=== PATIENT | female | born 1970 | race Caucasian/White ===

== ENCOUNTER 2016-09-24 09:51 | Emergency (ER) | payer OTHER ==
[~2016-09-24] VITALS: Ht 162.6 cm; Wt 77.1 kg
[~2016-09-24 09:51] MED LIST: DULOXETINE60 MG PO; FIORICET 325 MG1 TAB PO; FLEXERIL10 MG PO; GABAPENTIN300 MG PO; HYDROCODONE/ACE1 TA1 PO; MULTIVITAMIN1 TAB PO; MYRBETRIQ25 MG PO; PREDNISONE10 MG PO; TRANSDERM0.33 MG/24 TOP; VESICARE 5MG5 MG PO; VITAB121000 PO; VITAMIN B-650 MG PO; VITAMIN D31000 I1 PO; ZOLPIDEM TART10 MG PO; ZOLPIDEM TART12.5 MG PO
[2016-09-24 10:05] VITALS: BP 109/74
--- NOTE | 2016-09-24 10:55 | RADIOLOGY REPORT ---
EXAMINATION: XR SHOULDER, RIGHT CLINICAL INFORMATION: Pain after fall COMPARISON: None TECHNIQUE: AP external rotation, Grashey, scapular Y, and axillary views of the right shoulder. FINDINGS: Bones have normal alignment. The acromioclavicular and glenohumeral joints are intact. No evidence of arthritic deformity, fracture, subluxation or focal soft tissue swelling. The visualized right upper lung is normal. IMPRESSION: Normal right shoulder.
--- NOTE | 2016-09-24 10:57 | RADIOLOGY REPORT ---
EXAMINATION: XR WRIST, RIGHT CLINICAL INFORMATION: Pain and swelling after fall last night COMPARISON: 08/07/2015 TECHNIQUE: Right wrist, 4 views FINDINGS: Distal radius, ulna and radioulnar joint are intact. Carpal joint spaces are normal and carpal bones are normal. There is an old, well-corticated ossicle located distal to the ulnar styloid. The metacarpals are normal. The pronator quadratus fat stripe is maintained. IMPRESSION: No acute findings at the right wrist.
--- NOTE | 2016-09-24 11:30 | ED UPPER/LOWER EXTREMITY COMPL ---
History of Present Illness General Chief Complaint: Hand or Wrist Injury Stated Complaint: RT WRIST/RT SHOULDER PAIN S/P FALL Source: patient Exam Limitations: no limitations Vital Signs & Intake/Output Vital Signs & Intake/Output Vital Signs Date Time Temp Pulse Resp B/P Pulse O2 O2 Flow FiO2 Ox Delivery Rate 09/24 1005 97.4 74 18 109/74 100 Room Air ED Intake and Output 09/25 0000 09/24 1200 Intake Total Output Total Balance Patient 170 lb Weight Allergies Coded Allergies: MDX - Bee Venom (BEE VENOM) (SEVERE SWELLING AT SITE 08/07/15) MDX - EGGS (EGGS) (ALLERGY TESTED POSITIVE 10/19/14) MDX - Erythromycin (ERYTHROMYCIN) (VIOLENT VOMITING 08/07/15) Reconcile Medications Acetaminophen/Butalbital/Caf (Fioricet 325 MG-50 MG-40 MG) 1 TAB TAB 1 TAB PO TID PRN HEADACHES CHOLECALCIFEROL (VITAMIN D3) (Vitamin D3) 1,000 UNIT CAPSULE 1 SGL PO DAILY SUPPLEMENT (Reported) Cyanocobalamin (Vitamin B-12) 1,000 MCG TABLET 1 TAB PO DAILY SUPPLEMENT ( Reported) DULOXETINE HCL (Duloxetine) 60 MG CAPSULE.DR 60 MG PO DAILY FIBROMYALGA ( Reported) Gabapentin 300 MG CAPSULE 300 MG PO BID FIBROMYALGA (Reported) Multivitamin (Multiple Vitamins) 1 EACH TABLET 1 TAB PO DAILY SUPPLEMENT ( Reported) Naproxen (Naprosyn) 500 MG TABLET 1 TAB PO BID PRN PAIN AND INFLAMMATION PYRIDOXINE HCL (Vitamin B-6) (Unknown Strength) TABLET (Unknown Dose) PO DAILY SUPPLEMENT (Reported) Triage Note: 46 FALL ON ICY RAMP AT HOUSE LAST NIGHT. DENIES STRIKING HEAD OR ANY OTHER INJURIES. STATES SHE THINKS SHE PUT HER R ARM OUT TO BREAK THE FALL. DECLINES OFFER OF PAIN MEDS IN TRIAGE. RINGS REMOVED IN TRIAGE ON R HAND. XRAYS ORDERED. Triage Nurses Notes Reviewed? yes HPI: This patient is a 46-year-old female who presented to the emergency department today for evaluation of right wrist and right shoulder pain. The patient reported that she was walking down a ramp at her house when she stepped on an icy patch and fell bracing herself with her right arm. She reported that the pain has been singing and is constant. It is worse with movement. The pain is located in the top of her right wrist and the front of her shoulder. She reported pain is nonradiating and throbbing. The pain is approximately an 8 out of 10. No numbness or tingling in her extremities. The patient denied hitting her head or losing consciousness. She denied any visual changes, headaches, chest pain, difficulty breathing, abdominal pain, or any other associated symptoms. Past History Travel History Traveled to [place] past 21 day No Medical History Any Pertinent Medical History? 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 No Review of Systems Review of Systems Constitutional: Reports: no symptoms. EENTM: Reports: no symptoms. Respiratory: Reports: no symptoms. Cardiovascular: Reports: no symptoms. Gastrointestinal/Abdominal: Reports: no symptoms. Musculoskeletal: Reports: see HPI. Skin: Reports: no symptoms. Neurological/Psychological: Reports: no symptoms. All Other Systems: Reviewed and Negative Physical Exam Physical Exam General Appearance: well developed/nourished, no apparent distress, alert, awake Comments: Well-developed well-nourished person in no acute distress HEENT: Normal EENT exam, head normocephalic/atraumatic, moist mucous membranes Nose is atraumatic Neck: Supple. No midline tenderness. Full range of motion. Right sided cervical paraspinal musculature tenderness with muscular spasm noted Back: Normal gait Cardiovascular: Regular rate and rhythm with no murmurs, rubs or gallops Respiratory: Chest nontender. No respiratory distress. Breath sounds clear to auscultation bilaterally no respiratory distress. Speaking in full sentences Right upper extremity: No effusions overlying erythema or ecchymosis to the joint spaces. Full range of motion at the elbow. Range of motion at the wrist and shoulder limited due to pain. Tenderness to palpation over the posterior aspect of the shoulder. Tenderness to palpation over the dorsal aspect of the wrist. Radial brachial pulses 2+ and strong. Unable to assess capillary refill due to nail portuguese. Neuro: Alert oriented x3, cranial nerves II through XII grossly intact. Skin: No appreciable rash on exposed skin, skin is warm and dry. Psych: Mood and affect is normal Progress Differential Diagnosis: compartment syndrome, contusion, dislocation, DVT, fracture, gout, septic arthritis, sprain, tendon injury Plan of Care: Orders Procedure Date/time Status Durable Medical Equipment 09/24 1133 Active Diagnostic Imaging: Viewed by Me: Radiology Read. Discussed w/RAD: Radiology Read. Radiology Impression: PATIENT: AMY BARNES PRESENT AGE: 46 PATIENT ACCOUNT NO: [id number] : 66 LOCATION: ER ORDERING PHYSICIAN: PATTI VALLE MD SERVICE DATE: 09/24/16 EXAM TYPE: RAD - XRY-SHOULDER COMPLETE-RIGHT EXAMINATION: XR SHOULDER, RIGHT CLINICAL INFORMATION: Pain after fall COMPARISON: None TECHNIQUE: AP external rotation, Grashey, scapular Y, and axillary views of the right shoulder. FINDINGS: Bones have normal alignment. The acromioclavicular and glenohumeral joints are intact. No evidence of arthritic deformity, fracture, subluxation or focal soft tissue swelling. The visualized right upper lung is normal. IMPRESSION: Normal right shoulder. DICTATED BY: LILLIANA IGNACIO MD DATE/TIME DICTATED:09/24/161049 AUTOMATIC GRINDER OPERATOR:RAUL DATE/TIME TRANSCRIBED:09/24/161049 CONFIDENTIAL, DO NOT COPY WITHOUT APPROPRIATE AUTHORIZATION. <Electronically signed in Other Vendor System> SIGNED BY: LILLIANA IGNACIO MD 09/24/161054, PATIENT: AMY BARNES PRESENT AGE: 46 PATIENT ACCOUNT NO: [id number] : 66 LOCATION: [facility] ORDERING PHYSICIAN: PATTI VALLE MD SERVICE DATE: 09/24/16 EXAM TYPE: RAD - XRY-WRIST COMPLETE-RIGHT EXAMINATION: XR WRIST, RIGHT CLINICAL INFORMATION: Pain and swelling after fall last night COMPARISON: 08/07/2015 TECHNIQUE: Right wrist, 4 views FINDINGS: Distal radius, ulna and radioulnar joint are intact. Carpal joint spaces are normal and carpal bones are normal. There is an old, well-corticated ossicle located distal to the ulnar styloid. The metacarpals are normal. The pronator quadratus fat stripe is maintained. IMPRESSION: No acute findings at the right wrist. DICTATED BY: LILLIANA IGNACIO MD DATE/TIME DICTATED:09/24/161051 AUTOMATIC GRINDER OPERATOR:RAUL DATE/TIME TRANSCRIBED:09/24/161051 CONFIDENTIAL, DO NOT COPY WITHOUT APPROPRIATE AUTHORIZATION. <Electronically signed in Other Vendor System> SIGNED BY: LILLIANA IGNACIO MD 09/24/161056 Comments: This patient is a 46-year-old female who presented to the emergency department today for evaluation of right shoulder and wrist pain status post fall. No head strike or loss of consciousness. Unremarkable x-rays of the wrist and shoulder. This patient was counseled on supportive management of her symptoms. Likely shoulder and wrist strain. This patient will be given orthopedic follow-up should her symptoms persist or worsen after one week. She'll be given a shoulder immobilizer and wrist wrapped in an Dada wrap. Departure Departure Disposition: HOME OR SELF CARE Condition: Stable Clinical Impression Primary Impression: Wrist sprain Qualifiers: Encounter type: initial encounter Laterality: right Qualified Code: S63.501A - Unspecified sprain of right wrist, initial encounter Secondary Impressions: Shoulder strain Qualifiers: Encounter type: initial encounter Laterality: right Qualified Code: S46.911A - Strain of unspecified muscle, fascia and tendon at shoulder and upper arm level, right arm, initial encounter Referrals: CHUCHO HEARD,ROCIO Hood (PCP/Family) JOSHUA HEARD,ROSARIO Cabrera Additional Instructions: PLEASE USE the Dada wrap divided to you here in the emergency Department for extra support of your wrist. Please use the shoulder immobilizer provided to here in the emergency department for support of your shoulder. You may apply ice or heat the affected areas as needed. Keep your arm elevated when possible. Please call the orthopedic physician whose information has been provided to you in this packet for further evaluation and management should her symptoms persist or worsen after 5-7 days. Please return to the emergency department for any worsening symptoms or concerns. Departure Forms: Customer Survey General Discharge Information Prescriptions: Current Visit Scripts Naproxen (Naprosyn) 1 TAB PO BID PRN PAIN AND INFLAMMATION #20 TAB
[2016-09-24] MEDS ORDERED: NAPROSYN500 M1 PO (11:42)
== END 2016-09-24 11:54 ==
LOC: ERH 09:51
DX: S63.501A Unspecified sprain of right wrist, initial encounter (principal); S46.911A Strain of unspecified muscle, fascia and tendon at shoulder and upper arm level, right arm, initial encounter; W00.0XXA Fall on same level due to ice and snow, initial encounter
CPT/HCPCS: 73030-RT; 73110-RT

== ENCOUNTER 2018-03-21 18:53 | Emergency (ER) | payer OTHER ==
[~2018-03-21] VITALS: Ht 162.6 cm; Wt 72.1 kg
[~2018-03-21 18:53] MED LIST changes: +NAPROSYN500 M1 PO
[2018-03-21 22:11] VITALS: BP 125/78
[2018-03-21] MEDS ORDERED: EPIPEN0.3 MG/0.1 IM (23:14)
--- NOTE | 2018-03-21 23:14 | ED GENERAL ADULT ---
History of Present Illness General Chief Complaint: Animal/Insect Bite Stated Complaint: BEE STING Source: patient Exam Limitations: no limitations Vital Signs & Intake/Output Vital Signs & Intake/Output Vital Signs Date Time Temp Pulse Resp B/P B/P Pulse O2 O2 Flow FiO2 Mean Ox Delivery Rate 03/21 2211 68 16 125/78 98 Room Air 03/21 1902 96.9 69 18 119/80 97 Room Air Allergies Coded Allergies: MDX - Bee Venom (BEE VENOM) (SEVERE SWELLING AT SITE 08/07/15) MDX - EGGS (EGGS) (ALLERGY TESTED POSITIVE 10/19/14) MDX - Erythromycin (ERYTHROMYCIN) (VIOLENT VOMITING 08/07/15) Reconcile Medications Acetaminophen/Butalbital/Caf (Fioricet 325 MG-50 MG-40 MG) 1 TAB TAB 1 TAB PO TID PRN HEADACHES CHOLECALCIFEROL (VITAMIN D3) (Vitamin D3) 1,000 UNIT CAPSULE 1 SGL PO DAILY SUPPLEMENT (Reported) Cyanocobalamin (Vitamin B-12) 1,000 MCG TABLET 1 TAB PO DAILY SUPPLEMENT ( Reported) DULOXETINE HCL (Duloxetine) 60 MG CAPSULE.DR 60 MG PO DAILY FIBROMYALGA ( Reported) Epinephrine (Epipen) 0.3 MG/0.3 ML AUTO.INJCT 1 HELGA IM ONCE PRN anaphylaxis Gabapentin 300 MG CAPSULE 300 MG PO BID FIBROMYALGA (Reported) Multivitamin (Multiple Vitamins) 1 EACH TABLET 1 TAB PO DAILY SUPPLEMENT ( Reported) Naproxen (Naprosyn) 500 MG TABLET 1 TAB PO BID PRN PAIN AND INFLAMMATION PYRIDOXINE HCL (Vitamin B-6) (Unknown Strength) TABLET (Unknown Dose) PO DAILY SUPPLEMENT (Reported) Triage Note: PRESENTS TO THE ED FOR EVALUATION S/P BEE STING TO THE RIGHT INDEX FINGER. PT ADMITTS TO DRINKING SEVERAL BEERS PRIOR TO COMING IN. NO DIFF BREATHING, NO RASH/HIVES. REPORTS NUMBNESS OF THE AFFECTED FINGER. Triage Nurses Notes Reviewed? yes Onset: Abrupt Duration: hour(s): Timing: single episode today HPI: 47-year-old female with a history of fibromyalgia presenting status post bee sting to her right index finger. Patient states that she stopped to get a drink with a friend earlier today, had one beer. When leaving the bar she had a witnessed bee sting. Presents to the emergency department because she has been told in the past she was allergic to bees. Patient has not developed any redness or itching at the sting site, no rashes, no difficulty breathing, chest pain, angioedema, dysphasia, abdominal pain, nausea, vomiting. Past History Travel History Traveled to [place] past 21 day No Medical History Any Pertinent Medical History? see below for history Neurological: MENEIRES EENT: NONE Cardiovascular: NONE Respiratory: NONE Gastrointestinal: NONE Hepatic: NONE Renal: NONE Musculoskeletal: fibromyalgia Psychiatric: NONE Endocrine: NONE Blood Disorders: NONE Cancer(s): NONE PER DIEM/Reproductive: NONE Surgical History Surgical History: non-contributory Psychosocial History What is your primary language Argentine Tobacco Use: Current Daily Use Daily Tobacco Use Amount/Type: => 5 Cigarettes daily Family History Hx Contributory? No Review of Systems Review of Systems Constitutional: Reports: no symptoms. EENTM: Reports: no symptoms. Respiratory: Reports: no symptoms. Cardiovascular: Reports: no symptoms. GI: Reports: no symptoms. Genitourinary: Reports: no symptoms. Musculoskeletal: Reports: no symptoms. Skin: Reports: see HPI. Neurological/Psychological: Reports: no symptoms. Hematologic/Endocrine: Reports: no symptoms. Immunologic/Allergic: Reports: no symptoms. All Other Systems: Reviewed and Negative Physical Exam Physical Exam General Appearance: well developed/nourished, no apparent distress, alert, awake , comfortable Comments: Gen.: Well-nourished, well-developed, no acute distress. Head: Normocephalic, atraumatic. Eyes: Normal inspection bilaterally Ears: Normal inspection bilaterally Nose: Normal inspection Throat: No oropharyngeal edema or angioedema Neck: Normal inspection Lungs: clear to auscultation bilaterally, normnal breath sounds Heart: regular rate and rhythm Abdomen: soft and non-tender Extremities: Right index finger Inspection: No visible wound, no erythema or edema, normal inspection Palpation: No tenderness to palpation of the digit ROM: Unrestricted range of motion at all MCPs/PIPs/DIPs and IP joint Sensation: intact to median/radial/ulnar nerves Motor strength: 5/5 with digit flexion, extension, interosseous strength, and hand pin chaser strength Cap refill: <2 seconds Pulse: 2+ radial pulse Neurologic: alert and oriented x3, steady gait Skin: warm and dry, no rashes or hives Psychiatric: Normal mood and affect, no apparent delusions or hallucinations, behavior appropriate Core Measures ACS in differential dx? No CVA/TIA Diagnosis: No Sepsis Present: No Sepsis Focused Exam Completed? No Progress Differential Diagnoses I considered the following diagnoses in my evaluation of the patient: [Bee sting versus allergic reaction versus anaphylaxis] Plan of Care: Current Medications Sig/Mikayla Start time Last Medication Dose Stop Time Status Admin Diphenhydramine HCl 25 MG ONCE ONE 03/21 2315 UNVr (Benadryl) 03/21 2316 Patient's exam is benign, there is no evidence of local or systemic allergic reaction. Patient was in the emergency department for several hours with no development of any allergic reaction symptoms. She remains well-appearing and in no acute distress. Patient was given Rx EpiPen to carry on her in the event that she develops anaphylaxis in the future. Instructed to use Benadryl for the next 24 hours if she is concerned about any itching or signs of allergic reaction. Will follow up with her PMD for reevaluation. Given strict return precautions. Initial ED EKG: none Departure Departure Disposition: HOME OR SELF CARE Condition: Stable Clinical Impression Primary Impression: Bee sting Referrals: Darion HEARD,Neftali Hood (PCP/Family) Additional Instructions: 25 mg of Benadryl every 6 hours for the next 24 hours. Apply ice to the finger. Follow up with your primary care provider for reevaluation. Return to the emergency department for any worsening symptoms. Departure Forms: Customer Survey General Discharge Information Prescriptions: Current Visit Scripts Epinephrine (Epipen) 1 HELGA IM ONCE PRN anaphylaxis #1 INJ Critical Care Note Critical Care Note Critical Care Time: non-applicable
== END 2018-03-21 23:22 ==
LOC: ERH 18:53
DX: S60.460A Insect bite (nonvenomous) of right index finger, initial encounter (principal); W57.XXXA Bitten or stung by nonvenomous insect and other nonvenomous arthropods, initial encounter; Y93.9 Activity, unspecified; Y92.9 Unspecified place or not applicable